=== PATIENT | male | born 1955 | race Caucasian/White ===

== ENCOUNTER 2021-07-25 17:51 | Emergency (ER) | payer SELFPAY ==
[~2021-07-25] VITALS: Ht 172.7 cm; Wt 80.0 kg
[2021-07-25 23:01] VITALS: BP 111/69
== END 2021-07-25 23:02 | disposition home or self-care (01) ==
LOC: EDBD 17:51 → ER 17:51
DX: F10.129 Alcohol abuse with intoxication, unspecified (principal); Y90.9 Presence of alcohol in blood, level not specified
CPT/HCPCS: 99283